=== PATIENT | female | born 1955 | race Caucasian/White ===

== ENCOUNTER 2019-12-12 08:33 | Outpatient (RCR) | payer MEDICARE, MEDICAID, SELFPAY ==
--- NOTE | 2019-12-12 08:37 | XR_ITS ---
WS: [id number] RIGHT FOOT: 3 VIEW(S) TECHNIQUE: AP, oblique and lateral. HISTORY: PAIN, WOUND COMPARISON: None available. No acute fracture or dislocation. Normal tarsal/metatarsal alignment. Soft tissue few small calcific or osseous density or body densities surrounding the fifth metatarsal head. No definite erosion or osteomyelitis. XR/XR foot RT min 3V* [id number] IMPRESSION: 1. Soft tissue thickening with tiny calcific, osseous or foreign body densitie s at the level of the fifth metatarsal head. 2. No osteomyelitis.
== END 2019-12-13 23:59 | disposition home or self-care (01) ==
LOC: WOUND 08:33
PROVIDERS: Family Provider Family Medicine; Visit Provider Thoracic Surgery (Cardiothoracic Vascular Surgery)
DX: L98.9 Disorder of the skin and subcutaneous tissue, unspecified (principal); M79.671 Pain in right foot
CPT/HCPCS: 73630; 99203; G0463

== ENCOUNTER 2020-12-30 08:56 | Outpatient (CLI) | payer MEDICARE, MEDICAID, SELFPAY ==
--- NOTE | 2020-12-30 09:30 | USCV_ITS ---
Ashwini Nova Age: 65 Gender: F : 1955 Exam Date: 12/30/2020 09:16 Ordering Phys: Christina Rosales MD ([email or web address]) Technologist: Yamilka Patricio [place] [facility] [place]: HTN Aortic Velocity @ SMA (cm/s) 41.6 RIGHT KIDNEY LEFT KIDNEY Velocity (cm/s) Velocity (cm/s) Sys/Carlos Sys/Carlos Resistive Index Resistive Index 97.0 / 16.6 0.83 Proximal Renal Artery 40.9 / 8.3 0.80 97.7 / 18.0 0.82 Mid Renal Artery 74.2 / 13.9 0.81 70.0 / 20.1 0.71 Distal Renal Artery 65.1 / 13.2 0.80 92.9 / 13.2 0.86 Hilar 50.6 / 7.6 0.85 36.0 / 6.4 0.82 Upper Pole 24.3 / 6.2 0.74 32.6 / 10.4 0.68 Mid Pole 51.6 / 9.7 0.81 31.2 / 9.7 0.69 Lower Pole 33.3 / 6.9 0.79 2.30 Renal Aortic Ratio 1.80 Accleration Index (cm/sec2) 2959.0 Hilar 3209.0 0 0 1027.0 Upper Pole 850.00 0 515.00 Mid Pole 715.00 1009.0 Lower Pole 2145.0 0 0 112.7 Kidney Length (mm) 99.7 FINDINGS Normal kidney dimensions Normal arterial Doppler flow velocities and ratios Slightly elevated resistive indicis CONCLUSIONS 1. No significant arterial stenosis, based on the above findings. 2. Doppler features, suggesting medical renal disease Dr Christina Rosales MD [facility] (Electronically Signed) Final Date: 31 Dec 2020 23:43 S
== END 2020-12-30 08:57 | disposition home or self-care (01) ==
LOC: US 08:57
PROVIDERS: PCP Family Medicine; Visit Provider Internal Medicine Cardiovascular Disease
DX: R09.89 Other specified symptoms and signs involving the circulatory and respiratory systems (principal)
CPT/HCPCS: 93975

== ENCOUNTER → 2021-01-07 10:15 | Outpatient (BNVA) | payer MEDICARE, MEDICAID, SELFPAY | PROVIDERS: PCP Family Medicine; Referring Provider Internal Medicine Cardiovascular Disease; Visit Provider Internal Medicine Cardiovascular Disease | DX: Z20.822 Contact with and (suspected) exposure to COVID-19 (principal) | CPT/HCPCS: 87635 ==

== ENCOUNTER 2021-01-14 11:32 | Day surgery (SDC) | payer MEDICARE, MEDICAID, SELFPAY ==
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
[2021-01-14 12:31] VITALS: BP 160/72; PULSE 69; RESP 18; TEMP 37.6; O2SAT 96
--- NOTE | 2021-01-14 12:37 | USCV_ITS ---
Ashwini Nova Age: 65 Gender: F : 1955 Exam Date: 01/14/2021 13:10 Ordering Phys: Christina Rosales MD ([email or web address]) Technologist: Amari Padilla Exam Location: [facility] [place] Indication: IHSS, BP: / HR: Rhythm: Sinus Technical Quality: MEASUREMENTS (Male / Female) Normal Values Medications Patient given IV sedation by anesthesia service, for details please refer to the anesthesia report. Complications None. Proc. Components KENJI was performed at multiple levels. FINDINGS Left Ventricle Appears to be normal size. Moderate to severe hypertrophy of the left ventricle with normal ejection fraction- 65%. Flow turbulence at the LV outflow tract with a peak velocity of 4.2 m/s. Resting gradient of 71 mmHg Right Ventricle Appears to be of normal size ejection fraction Right Atrium The right atrium is normal in size. Left Atrium Mildly dilated left atrium LA Appendage Of normal size and contractility . IA Septum Interatrial septum appears to be intact with no evidence of any ASD or patent foramen ovale by color flow Doppler examination or by saline contrast injection Mitral Valve Trace of mitral regurgitation. No systolic anterior motion of the mitral leaflet Aortic Valve Thickened aortic valve with a mild to moderate aortic regurgitation. The aortic valve mobility appears to be restricted Tricuspid Valve Trace to mild tricuspid regurgitation. No gross morphologic abnormalities . Pulmonic Valve Minimally thickened Pericardium No pericardial effusion. Aorta Mild to moderate diffuse plaques in the arch and descending aorta. Fusiform dilatation of the ascending aorta measuring 3.8 cm CONCLUSIONS Features of hypertrophic obstructive cardiomyopathy with a resting outflow tract gradient of 71 mmHg. Normal LV size ejection fraction 65%. Thickened aortic valve with some restriction of mobility Mild to moderate aortic regurgitation Trace of mitral and tricuspid regurgitation Mildly dilated left Fusiform dilatation of the ascending aorta with a a maximum diameter of 3.[address] Christina Rosales MD [facility] (Electronically Signed) Final Date: 14 January 2021 21:09 S
--- NOTE | 2021-01-14 12:42 | W.PM.OPSUD ---
Surgery/Procedure H&P Update DATE OF PROCEDURE: January 14, 2021 DATE H&P PERFORMED: 12/17/20 H&P UPDATE INFORMATION: I have reviewed H&P completed within last 30 days, I have examined patient prior to procedure and No changes to prior documentation PREOP DIAGNOSIS: AR/Dilated aortic root/ IHSS PRIMARY INDICATION FOR PROCEDURE: AR PLANNED PROCEDURE: Operation Date: 01/14/21 12:30 Proposed Procedures p KENJI(Not Applicable) - Christina Rosales MD
[2021-01-14] MEDS: sodium chloride 0.9% 1,000 ML 30 ML IV (12:59)
[2021-01-14 13:37] VITALS: BP 99/48; PULSE 61; RESP 16; TEMP 36.4; O2SAT 92
[2021-01-14 13:52] VITALS: BP 126/58; PULSE 60; RESP 16; O2SAT 92
--- NOTE | 2021-01-14 14:30 | ANE.PACU2 ---
Inpatient post-anesthesia follow up: Airway intact: Yes Vital signs: Temperature 97.6 F Pulse Rate 60 Respiratory Rate 16 Blood Pressure 126/58 Pulse Oximetry 92 Oxygen Delivery Me thod Room Air Oxygen Flow Rate Fraction of Inspir ed Oxygen Hydration adequate: Yes Nausea and vomiting: No Pain level: 1 Mental status: Baseline
== END 2021-01-14 14:16 | disposition home or self-care (01) ==
PROVIDERS: PCP Family Medicine; Visit Provider Internal Medicine Cardiovascular Disease
PROC: (CPT 93312; principal; 2021-01-14 12:30)
DX: I51.7 Cardiomegaly (principal); I34.0 Nonrheumatic mitral (valve) insufficiency; I35.1 Nonrheumatic aortic (valve) insufficiency; J44.9 Chronic obstructive pulmonary disease, unspecified; I11.0 Hypertensive heart disease with heart failure; I50.33 Acute on chronic diastolic (congestive) heart failure; E11.9 Type 2 diabetes mellitus without complications; E78.5 Hyperlipidemia, unspecified; F41.9 Anxiety disorder, unspecified; F17.210 Nicotine dependence, cigarettes, uncomplicated; Z79.82 Long term (current) use of aspirin; K21.9 Gastro-esophageal reflux disease without esophagitis; R55 Syncope and collapse
CPT/HCPCS: 93312; 93318; 93320; 93325; 96360; J2704; J7030

== ENCOUNTER → 2021-07-27 11:16 | Outpatient (BNVA) | payer MEDICARE, MEDICAID, SELFPAY | PROVIDERS: PCP Family Medicine; Visit Provider Internal Medicine Cardiovascular Disease | DX: R25.2 Cramp and spasm; R06.02 Shortness of breath | CPT/HCPCS: 80048; 83735 ==

== ENCOUNTER → 2022-03-25 09:39 | Outpatient (BNVA) | payer MEDICARE, MEDICAID, SELFPAY | PROVIDERS: PCP Family Medicine; Referring Provider Family Medicine; Visit Provider Orthopaedic Surgery | DX: M54.59 Other low back pain; M54.6 Pain in thoracic spine; M47.814 Spondylosis without myelopathy or radiculopathy, thoracic region | CPT/HCPCS: 72070; 72110; 99204 ==

== ENCOUNTER 2022-04-16 05:23 | Day surgery (SDC) | payer MEDICARE, MEDICAID, SELFPAY ==
--- NOTE | 2022-04-12 08:44 | ECG_ITS ---
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 Measurements Intervals [place] Rate: 56 P: 58 MN: 161 QRS: 26 QRSD: 89 T: 99 QT: 479 QTc: 465 Interpretive Statements SINUS BRADYCARDIA LEFT VENTRICULAR HYPERTROPHY AND ST-T CHANGE [VOLTAGE CRITERIA PLUS ST/T ABNORMALITY] Compared to ECG 12/15/2018 01:14:28 ST (T wave) deviation now present Atrial-paced complex(es) or rhythm no longer present Electronically Signed On 04-12-2022 14:01:53 CDT by Darek Kan M.D. [id number]
[2022-04-12 09:08] VITALS: BMI 24.0
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
[2022-04-12 09:37] LABS: Anion Gap 13.5 (5-19); Blood Urea Nitrogen 34 mg/dL (8-23); Calcium 9.4 mg/dL (8.5-10.5); Carbon Dioxide 22 mmol/L (22-29); Chloride 108 mmol/L (98-107); Glomerular Filtration Rate 49.5 mL/min (90-130); Glucose 103 mg/dL (65-115); Osmolality Calculated 296 mOsm/kg (285-295); Potassium 4.5 mmol/L (3.5-5.1); Sodium 139 mmol/L (136-145)
[2022-04-16] VITALS (16 sets, daily range): BP systolic 80–154; BP diastolic 39–91; PULSE 58–66; RESP 13–20; TEMP 36.1–36.3; O2SAT 93–98
--- NOTE | 2022-04-16 | SCC_ITS ---
Procedure done: 1. Removal of spinal cord stimulator 2. Removal of battery for spinal cord stimulator 9.9 seconds of fluoroscopic guidance, for a cumulative dose of 2.1 mGy, was provided to Dr. Barros by the radiology department. C-arm images of the thoracic spine were saved for the patient's permanent record. [facility]
--- NOTE | 2022-04-16 | XR_ITS ---
WS: [id number] Exam: XR thoracic spine 1V [id number] Date/Time of Exam: 04/16/2022 12:00 AM Reason For Exam: spinal cord stimulator removal Anterior posterior C-arm images of the thoracic spine are submitted for evaluation. Comparison to edvin or study 03/25/2022. Previously noted neurostimulator electrodes in the lower thoracic spinal canal have been removed. No other significant finding on this limited series.
[2022-04-16] MEDS: sodium chloride 0.9% 1,000 ML 30 ML IV (06:35)
--- NOTE | 2022-04-16 06:37 | W.PM.OPSUD ---
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
--- NOTE | 2022-04-16 06:47 | P.ANESUD_ITS ---
Pre-Anesthetic Update Pre-Anesthetic Assessment: Date of Surgery/Procedure: 04/16/22 Preop Rayna gnosis: Failed spinal cord stimulator l Proposed Procedure: Operation Date: 04/16/22 07:00 Proposed Procedures p Stimulator Removal(Not Applicable) - Heriberto Barros, DO Any changes to Pre-Anesthetic Assessment?: No Last Intake: Intake Last Liquid Date 04/15/22 Last Liquid Time 23:30 Last Solid Date 04/15/22 Last Solid Time 17:00 Vitals: Temperature 97.4 F L 04/16/22 05:57 Temperature Source Temporal Artery S can 04/16/22 05:57 Pulse Rate 58 L 04/16/22 05:57 Respiratory Rate 18 04/16/22 05:57 Blood Pressure 154/76 04/16/22 05:57 Blood Pressure Hiwot n 102 04/16/22 05:57 Pulse Oximetry 98 04/16/22 05:57 Oxygen Delivery Me thod 04/16/22 06:05 Exam: Pre-Anes Outpt Exam: alert, oriented x 3, clear to auscultation bilaterally and regular rate & rhythm Cardiac Studies: Transesophageal Echocardiogram 01/14/21 Cardiac Event Monitor 12/17/20
[2022-04-16] MEDS: ceFAZolin 2,000 MG in sodium chloride 0.9% (plus) 50 ML 100 MG IV (06:54)
[2022-04-16] MEDS: vancomycin 1,000 MG SDV 1000 MG XX (07:52)
--- NOTE | 2022-04-16 08:23 | P.OP_ITS ---
Operative Report Date of procedure: April 16, 2022 Pre-op diagnosis: Preop Diagnosis Failed spinal cord stimulator Post-op diagnosis: same Procedure done: 1. Removal of spinal cord stimulator 2. Removal of battery for spinal cord stimulator Surgeon: Heriberto Barros Estimated blood loss (mL): 10 Procedure: 1. Removal of spinal cord stimulator 2. Removal of battery for spinal cord stimulator Patient was brought to the level suite after undergoing anesthesia was placed in the prone position. Patient was then prepped and draped in normal sterile fashion. All areas impingement well-padded. Skin tear is made over the battery pack on the right flank. Once the skin was cut bur was used to coagulate bleeding. The capsule that the battery was then was then removed and the wires were freed up. Next attention was brought to the spinal cord stimulator. Skin screws made using previous skin incision and blunt dissection was made down to the fascia fascia so the Bovie Reyes was used to press to dissect down the lamina. The wires were identified. The entrance to the underneath the lamina was identified there was significant amount of scar tissue. The microscope was brought in the end of the spinal cord stimulator was dissected out with Bovie and curved curette and Kerrison rongeurs. Drill was then used to take more of the lamina because of the significant mount of scarring. Once the lamina was taken down further again Kerrison rongeur curved curettes and rongeur were used to help dissect out the spinal cord stimulator. Stimulator was then completely freed up and then gently pulled out. The wires were then dissected out. The battery wire was cut and then the wires were pulled through the soft tissue. Fluoroscopy was used to ensure that there is no wires or stimulator left inside the patient. Wounds were irrigated vancomycin powder was placed and wounds were closed with 0 Vicryl 2-0 Vicryl and Monocryl suture. Steri-Strips were used and sterile dressings applied patient was transferred to the PACU in stable c ondition.
[2022-04-16] MEDS: fentaNYL 50 mcg/mL INJ 2mL IVP ×2 (09:04→09:14)
[2022-04-16] MEDS: oxyCODONE-APAP 10-325 mg Tablet 1 TAB PO (09:56)
--- NOTE | 2022-04-16 12:00 | ANE.PACU2 ---
Inpatient post-anesthesia follow up: Airway intact: Yes Vital signs: Temperature 97.0 F Pulse Rate 62 Respiratory Rate 18 Blood Pressure 136/66 Pulse Oximetry 97 Oxygen Delivery Me thod Room Air Oxygen Flow Rate Fraction of Inspir ed Oxygen Hydration adequate: Yes Nausea and vomiting: No Pain level: 3 Mental status: Baseline
== END 2022-04-16 10:10 | disposition home or self-care (01) ==
PROVIDERS: Anesthesiology; PCP Family Medicine; Visit Provider Orthopaedic Surgery
PROC: (CPT 63661; principal; 2022-04-16 07:00)
DX: T85.192A Other mechanical complication of implanted electronic neurostimulator of spinal cord electrode (lead), initial encounter (principal); I10 Essential (primary) hypertension; E78.5 Hyperlipidemia, unspecified; J44.9 Chronic obstructive pulmonary disease, unspecified; K21.9 Gastro-esophageal reflux disease without esophagitis; F17.210 Nicotine dependence, cigarettes, uncomplicated; Z79.82 Long term (current) use of aspirin; Z88.5 Allergy status to narcotic agent; Z88.2 Allergy status to sulfonamides; Y83.8 Other surgical procedures as the cause of abnormal reaction of the patient, or of later complication, without mention of misadventure at the time of the procedure
CPT/HCPCS: 63661; 72020; 76000; 80048; 93005; J0330; J1100; J2405; J2704; J3010; J3370; J3490; J7030

== ENCOUNTER → 2022-04-27 08:42 | Outpatient (BNVA) | payer MEDICARE, MEDICAID, SELFPAY | PROVIDERS: PCP Family Medicine; Visit Provider Physician Assistant | DX: Z47.89 Encounter for other orthopedic aftercare (principal) | CPT/HCPCS: 99024 ==

== ENCOUNTER → 2022-05-25 08:41 | Outpatient (BNVA) | payer MEDICARE, MEDICAID, SELFPAY | PROVIDERS: PCP Family Medicine; Visit Provider Physician Assistant | DX: Z47.89 Encounter for other orthopedic aftercare (principal) | CPT/HCPCS: 99024 ==

== ENCOUNTER 2022-07-16 14:50 | Outpatient (CLI) | payer MEDICARE, MEDICAID, SELFPAY ==
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
== END 2022-07-16 14:51 | disposition home or self-care (01) ==
LOC: RAD 14:50
PROVIDERS: PCP Family Medicine; Visit Provider Physician Assistant
DX: M48.061 Spinal stenosis, lumbar region without neurogenic claudication (principal)
CPT/HCPCS: 72148

== ENCOUNTER → 2022-08-17 10:58 | Outpatient (BNVA) | payer MEDICARE, MEDICAID, SELFPAY | PROVIDERS: PCP Family Medicine; Visit Provider Orthopaedic Surgery | DX: M43.16 Spondylolisthesis, lumbar region (principal); M48.061 Spinal stenosis, lumbar region without neurogenic claudication; M48.54XD Collapsed vertebra, not elsewhere classified, thoracic region, subsequent encounter for fracture with routine healing | CPT/HCPCS: 72070; 99024; 99214 ==

== ENCOUNTER 2022-09-17 10:07 | Outpatient (CLI) | payer MEDICARE, MEDICAID, SELFPAY | END 2022-09-17 10:08 | disposition home or self-care (01) | LOC: RT 09-24 10:07 | PROVIDERS: PCP Family Medicine; Visit Provider Orthopaedic Surgery | DX: Z13.6 Encounter for screening for cardiovascular disorders (principal) | CPT/HCPCS: 93005 ==

== ENCOUNTER 2022-09-24 07:52 | Day surgery (SDC) | payer MEDICARE, MEDICAID, SELFPAY ==
[2022-09-17 08:33] VITALS: BMI 24.0
--- NOTE | 2022-09-17 08:36 | ECG_ITS ---
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 Measurements Intervals [place] Rate: 55 P: 146 WI: 153 QRS: 46 QRSD: 90 T: 188 QT: 445 QTc: 426 Interpretive Statements ECTOPIC ATRIAL BRADYCARDIA POSSIBLE LEFT ATRIAL ENLARGEMENT [-0.1mV P-WAVE IN V1/V2] LEFT VENTRICULAR HYPERTROPHY AND ST-T CHANGE [VOLTAGE CRITERIA PLUS ST/T ABNORMALITY] Compared to ECG 04/12/2022 09:32:23 Bradycardia, nonsinus now present Sinus bradycardia no longer present ST (T wave) deviation still present Electronically Signed On 09-17-2022 23:28:52 BUSINESS INTELLIGENCE DEVELOPER by Simone Dye M.D. [id number]
[2022-09-17 09:07] LABS: Basophils # 0.1 10^3/uL (0.0-0.1); Basophils % 1.1 %; Eosinophils # 0.3 10^3/uL (0.0-0.8); Eosinophils % 3.3 %; Hematocrit 47.9 % (37.0-47.0); Hemoglobin 15.6 g/dL (11.5-15.3); Lymphocytes # 3.1 10^3/uL (0.8-4.8); Lymphocytes % 29.5 %; Mean Corpuscular HGB Conc 32.6 g/dL (30.0-36.0); Mean Corpuscular Hemoglobin 30.8 pg (28.0-34.0); Mean Corpuscular Volume 94.7 fl (81-99); Mean Platelet Volume 10.7 fL (7.4-10.4); Monocytes % 9.3 %; Neutrophils # 5.88 10^3/uL (1.8-7.7); Neutrophils % 56.6 %; Nucleated Red Blood Cells % 0 %; Platelet Count 307 10^3/cmm (130-400); Red Blood Count 5.06 10^6/uL (4.1-5.3); Red Cell Distribution Width 13.6 % (12.1-15.1); White Blood Count 10.4 10^3/uL (4.0-10.0)
[2022-09-17 09:39] LABS: Blood Urea Nitrogen 25 mg/dL (8-23); Carbon Dioxide 20 mmol/L (22-29); Chloride 106 mmol/L (98-107); Glomerular Filtration Rate 62.3 mL/min (90-130); Glucose 89 mg/dL (65-115); Osmolality Calculated 290 mOsm/kg (285-295); Sodium 138 mmol/L (136-145)
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
[2022-09-24] VITALS (9 sets, daily range): BP systolic 113–188; BP diastolic 63–94; PULSE 61–88; RESP 16–25; TEMP 36.3–36.5; O2SAT 96–100
[2022-09-24 08:31] LABS: Glucose Point of Care 96 mg/dL (70-110)
[2022-09-24] MEDS: sodium chloride 0.9% 1,000 ML 30 ML IV (08:36)
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
--- NOTE | 2022-09-24 09:07 | P.ANESUD_ITS ---
Pre-Anesthetic Update Pre-Anesthetic Assessment: Date of Surgery/Procedure: 09/24/22 Preop Rayna gnosis: Lumbar stenosis Proposed Procedure: Operation Date: 09/24/22 09:55 Proposed Procedures p Lumbar Spine Decompression Bilat L 10/16 96961, M48.062(Bilateral) - Heriberto Barros, DO Any changes to Pre-Anesthetic Assessment?: No Last Intake: Intake Last Liquid Date 09/23/22 Last Liquid Time 20:00 Last Solid Date 09/23/22 Last Solid Time 20:00 Vitals: Temperature 97.4 F L 09/24/22 08:06 Temperature Source Temporal Artery S can 09/24/22 08:06 Pulse Rate 88 09/24/22 08:06 Respiratory Rate 18 09/24/22 08:06 Blood Pressure 163/94 09/24/22 08:06 Blood Pressure Hiwot n 117 09/24/22 08:06 Pulse Oximetry 98 09/24/22 08:06 Oxygen Delivery Me thod 09/24/22 08:14 Exam: Pre-Anes Outpt Exam: alert, oriented x 3, clear to auscultation bilaterally and regular rate & rhythm Additional Exam Findings (including area of procedure): murmur Cardiac Studies: Transesophageal Echocardiogram 01/14/21 Cardiac Event Monitor 12/17/20
[2022-09-24] MEDS: diphenhydrAMINE 50 mg/mL SDV 1mL 12.5 MG IVP (10:08)
[2022-09-24] MEDS: ceFAZolin 2,000 MG in sodium chloride 0.9% (plus) 50 ML 100 MG IV (10:23)
[2022-09-24] MEDS: lidocaine-epi 2% 20 mL INJ INJECTION (10:51)
--- NOTE | 2022-09-24 11:36 | P.OP_ITS ---
Operative Report Date of procedure: September 24, 2022 Pre-op diagnosis: Preop Diagnosis Lumbar stenosis with neurogenic claudication Post-op diagnosis: same Procedure done: 1. L3/4 laminectomy with partial facetectomy 2. L4/5 laminectomy with partial facetectomy Surgeon: Heriberto Barros Intervention Teacher: Dedrick Shepherd Intervention Teacher: The surgical first assistant, Dedrick Shepherd, PAC was needed for his expertise under the microscope. He was important and necessary throughout the procedure to complete in a safe and timely manner. He assisted with patient positioning prepping and draping tissue retraction suctioning of the operative field protect ion of the dural sac and tissue closure Estimated blood loss (mL): 20 Procedure: 1. L3/4 laminectomy with partial facetectomy 2. L4/5 laminectomy with partial facetectomy Patient is brought to the operative suite. After undergoing anesthesia they are placed in the prone position. All areas of impingement are well padded. Patient is then prepped and draped in the normal sterile fashion. A skin incision is made over the L3/4 level. This is confirmed under c-arm guidance. A series of dilators are passed and the tubular retractor is docked on the L3 lamina. A bovie is used to clear the soft tissue off the lamina and the L 3/4 facet joint. A high speed damián is then used to perform the laminectomy and take down the medial aspect of the L 3/4 facet joint. A kerrison rongeure was then used to take down the remaining lamina and smooth the edged of the laminectomy up to the point where the ligamentum flavum attaches. Attention was then brought to the medial aspect of the facet joint. The remaining medial aspect of the superior and inferior aspect of the facet joint were taken down with the kerrison from the pedicle of L3 to L 4. The facet joint had significant hypertrophy. Attention was then brought to the Ligamentum Flavum. The ligament was taken down from the lamina of L3 to L4 and out medially to the remaining facet joint. The ligament was thick. The dura was then exposed. The dura was in good repair. The L3 nerve was then traced with a curette out the L3/4 foramen and found to be adequately decompressed. The L4 nerve was traced with a curette around the L4 pedicle. The lateral recess was opened with a kerrison helping to further decompress the L4 nerve. The tubular retractor was then tilted to the contralateral side. The bovie was used to take down the soft tissue on the spinous process. The high speed damián was used to take down the spinous process and then the contralateral lamina of L3. The kerrison rongeur was used to take down the remaining lamina to the point where the ligamentum flavum attached and the ligamentum flavum was taken down from L3 to L4. The kerrison rongeur was then used to reach across and take down the medial aspect of the contralateral L3/4 facet joint.The currete was used to trace the contralateral L3 nerve out the L3/4 foramen to make sure it was decompressed adequatesly and the L4 was traced around the L4 pedicle. The lateral recess was opened further with the kerrison to ensure the L4 is adequately decompressed. Wound is then irrigated copiously with saline and surgiflo is used to stop any bleeding. The tubular retractor is removed and A skin incision is made over the L4/5 level. This is confirmed under c-arm guidance. A series of dilators are passed and the tubular retractor is docked on the L4 lamina. A bovie is used to clear the soft tissue off the lamina and the L 4/5 facet joint. A high speed damián is then used to perform the laminectomy and take down the medial aspect of the L 4/5 facet joint. A kerrison rongeure was then used to take down the remaining lamina and smooth the edged of the laminectomy up to the point where the ligamentum flavum attaches. Attention was then brought to the medial aspect of the facet joint. The remaining medial aspect of the superior and inferior aspect of the facet joint were taken down with the kerrison from the pedicle of L4 to L 5. The facet joint had significant hypertrophy. Attention was then brought to the Ligamentum Flavum. The ligament was taken down from the lamina of L4 to L5 and out medially to the remaining facet joint. The ligament was thick. The dura was then exposed. The dura was in good repair. The L4 nerve was then traced with a curette out the L4/5 foramen and found to be adequately decompressed. The L5 nerve was traced with a curette around the L5 pedicle. The lateral recess was opened with a kerrison helping to further decompress the L5 nerve. The tubular retractor was then tilted to the contralateral side. The bovie was used to take down the soft tissue on the spinous process. The high speed damián was used to take down the spinous process and then the contralateral lamina of L4. The kerrison rongeur was used to take down the remaining lamina to the point where the ligamentum flavum attached and the ligamentum flavum was taken down from L4 to L5. The kerrison rongeur was then used to reach across and take down the medial aspect of the contralateral L4/5 facet joint.The currete was used to trace the contralateral L4 nerve out the L4/5 foramen to make sure it was decompressed adequatesly and the L5 was traced around the L5 pedicle. The lateral recess was opened further with the kerrison to ensure the L5 is adequately decompressed. Wound is then irrigated copiously with saline and surgiflo is used to stop any bleeding. The tubular retractor is removed and the wound is closed with vicryl and monocryl suture. Glue is then used to protect the wound. A sterile dressing is then placed. Patient was then placed in the supine position and transferred to the PACU in stable condition.
[2022-09-24] MEDS: oxyCODONE-APAP 10-325 mg Tablet 1 TAB PO (12:16)
[2022-09-24] MEDS: HYDROmorphone 1 mg/mL INJ 1 mL 0.5 MG IVP (12:17)
--- NOTE | 2022-09-24 13:39 | XR_ITS ---
WS: [id number] XR lumbar spine 1V [id number] REASON FOR EXAM: OR PICS FINDINGS: Surgical instrument overlying the left L4-L5 interspace. XR/XR lumbar spine 1V [id number] IMPRESSION: Lumbar localization in surgery as above.
--- NOTE | 2022-09-24 14:09 | ANE.PACU2 ---
Inpatient post-anesthesia follow up: Airway intact: Yes Vital signs: Temperature 97.7 F Pulse Rate 67 Respiratory Rate 16 Blood Pressure 113/86 Pulse Oximetry 96 Oxygen Delivery Me thod Room Air Oxygen Flow Rate 6 Fraction of Inspir ed Oxygen Hydration adequate: Yes Nausea and vomiting: No Pain level: 1 Mental status: Baseline
== END 2022-09-24 13:02 | disposition home or self-care (01) ==
PROVIDERS: Anesthesiology; PCP Family Medicine; Visit Provider Orthopaedic Surgery
PROC: (CPT 63005; principal; 2022-09-24 09:45)
DX: M48.062 Spinal stenosis, lumbar region with neurogenic claudication (principal); J44.9 Chronic obstructive pulmonary disease, unspecified; I25.10 Atherosclerotic heart disease of native coronary artery without angina pectoris; I11.0 Hypertensive heart disease with heart failure; I50.9 Heart failure, unspecified; E78.5 Hyperlipidemia, unspecified; F17.210 Nicotine dependence, cigarettes, uncomplicated
CPT/HCPCS: 63047; 63048; 36415; 36416; 72020; 76000; 80048; 82962; 85025; J0690; J1100; J1170; J1200; J2405; J2704; J3010; J3490; J7030

== ENCOUNTER → 2022-10-12 09:50 | Outpatient (BNVA) | payer MEDICARE, MEDICAID, SELFPAY | PROVIDERS: PCP Family Medicine; Visit Provider Orthopaedic Surgery | DX: Z47.89 Encounter for other orthopedic aftercare (principal) | CPT/HCPCS: 99024 ==

== ENCOUNTER → 2022-11-11 10:04 | Outpatient (BNVA) | payer MEDICARE, MEDICAID, SELFPAY | PROVIDERS: PCP Family Medicine; Visit Provider Orthopaedic Surgery | DX: Z47.89 Encounter for other orthopedic aftercare (principal) | CPT/HCPCS: 99024 ==

== ENCOUNTER → 2022-12-16 10:25 | Outpatient (BNVA) | payer MEDICARE, MEDICAID, SELFPAY | PROVIDERS: PCP Family Medicine; Visit Provider Orthopaedic Surgery | DX: Z47.89 Encounter for other orthopedic aftercare (principal) | CPT/HCPCS: 99024 ==